=== PATIENT | female | born 1995 | race Caucasian/White ===

== ENCOUNTER 2022-08-29 11:37 | Emergency (ER) | payer OTHER ==
[~2022-08-29] VITALS: Ht 160 cm; Wt 79.4 kg
[2022-08-29 11:45] VITALS: BP 105/74
[2022-08-29] MEDS ORDERED: IBUP-2213 PO (12:17)
[2022-08-29] MEDS ORDERED: METH-1681 PO (12:17)
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
== END 2022-08-29 13:37 | disposition home or self-care (01) ==
LOC: MED 11:37
DX: S13.4XXA Sprain of ligaments of cervical spine, initial encounter (principal); V49.88XA Car occupant (driver) (passenger) injured in other specified transport accidents, initial encounter; Y93.89 Activity, other specified; Y92.89 Other specified places as the place of occurrence of the external cause; Y99.8 Other external cause status
CPT/HCPCS: 99283